=== PATIENT | female | born 1970 | race Caucasian/White ===

== ENCOUNTER 2019-06-16 13:48 | Day surgery (SDC) | payer MEDICAID ==
[2019-06-10 14:26] LABS: BASOPHILS # (AUTO) 0.1 X10'3 (0-0.2); BASOPHILS % (AUTO) 0.9 % (0-1); EOSINOPHILS # (AUTO) 0.2 X10'3 (0-0.9); EOSINOPHILS % (AUTO) 2.5 % (0-6); LYMPHOCYTES # (AUTO) 2.8 X10'3 (1.1-4.8); LYMPHOCYTES % (AUTO) 31.2 % (21-51); MEAN CORPUSCULAR HEMOGLOBIN 29.6 PG (27.0-31.0); MEAN CORPUSCULAR VOLUME 87.3 FL (78-98); MEAN PLATELET VOLUME 7.8 FL (7.4-10.4); MONOCYTES # (AUTO) 0.6 X10'3 (0-0.9); MONOCYTES % (AUTO) 6.9 % (2-12); NEUTROPHILS # (AUTO) 5.3 X10'3 (1.8-7.7); NEUTROPHILS % (AUTO) 58.5 % (42-75); PRE OP HEMATOCRIT 38.3 % (35.0-45.0); PRE OP PLATELET COUNT 317 X10'3 (140-440); RED BLOOD COUNT 4.39 X10'6 (4.20-5.60); RED CELL DISTRIBUTION WIDTH 12.8 % (11.5-14.5)
[2019-06-10 14:39] LABS: ALBUMIN 4.5 G/DL (3.4-5.0); ALKALINE PHOSPHATASE 101 IU/L (46-116); BLOOD UREA NITROGEN 23 MG/DL (7-18); BUN/CREATININE RATIO 32.4 (6.6-38.0); CALCIUM 9.6 MG/DL (8.5-10.1); CHLORIDE 101 MMOL/L (99-107); CREATININE 0.71 MG/DL (0.40-0.90); PRE OP ALT 43 U/L (30-65); PRE OP ANION GAP 7 (8-16); PRE OP AST 33 U/L (10-37); PRE OP BILIRUB, TOTAL 0.8 MG/DL (0.0-1.0); PRE OP GLUCOSE 98 MG/DL (70-104); PRE OP POTASSIUM 4.5 MMOL/L (3.4-5.1); PRE OP SODIUM 139 MMOL/L (135-145); TOTAL CARBON DIOXIDE 31.1 MMOL/L (24-32); TOTAL PROTEIN 9.2 G/DL (6.4-8.2); eGFR 88 ML/MIN
[2019-06-16] VITALS (10 sets, daily range): BP systolic 108–134; BP diastolic 58–73
[~2019-06-16] VITALS: Ht 180.3 cm; Wt 81.6 kg
[~2019-06-16 13:48] MED LIST: ASPI-1264 PO; IBUP-24 PO; cefazolin/dext.iso 2gm/100ml 100 ML IV ONE; famotidine 20mg tablet PO ONE; ringers solution, lacted 1,000 ML IV SCH; vancomycin inj 1,500 MG in normal saline 300ml IV soln IV ONE
[2019-06-16] MEDS ORDERED: BUPIVAcaine/PF 2.5 mg/ml (0.25%) 30ml vial ONE (13:54)
[2019-06-16] MEDS ORDERED: triamcinolone acetonide 40mg/ml inj ONE (13:54)
[2019-06-16] MEDS ORDERED: fentaNYL/PF 50MCG/1 ML 2ML syringe IV PRN ×2 (14:15)
[2019-06-16] MEDS ORDERED: ondansetron/PF 4mg/2ml inj IV PRN (14:15)
[2019-06-16] MEDS ORDERED: labetalol 20mg/4ml (5mg/ml) syringe IV PRN (14:15)
[2019-06-16] MEDS ORDERED: hydrALAZINE 20mg/ml inj. IV PRN (14:15)
[2019-06-16] MEDS ORDERED: morphine 4 MG/ML inj SYRINge IV PRN ×2 (14:15)
[2019-06-16] MEDS ORDERED: ringers solution, lacted 1,000 ML IV SCH (14:15)
[2019-06-16] MEDS ORDERED: fentaNYL/PF 50MCG/1 ML 2ML syringe ONE (14:54)
[2019-06-16] MEDS ORDERED: sevoflurane 250ml liquid IH ONE (14:54)
[2019-06-16] MEDS ORDERED: dexamethasone sod phosphate 10mg/ml inj ONE (14:54)
[2019-06-16] MEDS ORDERED: midazolam 2 mg/2 ml injection ONE (14:54)
[2019-06-16] MEDS ORDERED: propofol inj 20 ML IV ONE (14:56)
[2019-06-16] MEDS ORDERED: LIDOcaine 2% (20mg/ml) 5ml vial ONE (14:56)
[2019-06-16] MEDS ORDERED: ondansetron/PF 4mg/2ml inj ONE (14:57)
[2019-06-16] MEDS ORDERED: naloxone 0.4 mg/ml inj ONE (15:49)
--- NOTE | 2019-06-16 15:55 | NUR ---
Received from OR via [facility] , accompanied by Anesthesiologist MAURISIO and report given by Anesthesiolgist. PATIENT WITH 20G PIV IN RIGHT UE RUNNING LR AT 100. DENIES PAIN. LEFT KNEE BIAS WRAP IS CDI. Addendum: 06/16/19 at 1616 by Nghia Forrest RN, RN Amended: Links added.
[2019-06-16] MEDS ORDERED: acetaminophen 1,000mg/100ml IV 100 ML IV ONE (16:35)
--- NOTE | 2019-06-16 17:25 | NUR ---
ALL DC CRITERIA HAS BEEN MET. IV TAKEN OUT WITHOUT COMPLICATIONS. ALL INSTRUCTIONS COVERED AND ALL QUESTIONS ANSWERED. DRESSINGS CDI. OUT VIA WHEELCHAIR TO PERSONAL VEHICLE WHERE PATIENT WAS SECURED IN AND DRIVEN HOME BY FAMILY. PATIENT DEMONSTRATED SAFE GAIT WITH CRUTCHES. SPOUSE PRESENT TO DRESS PATIENT AND HEAR ALL DC INSTRUCTIONS. ALL QUESTIONS ANSWERED. PAIN AT A TOLERABLE LEVEL AT THIS TIME AND DRESSING TO KNEE IS CDI. Addendum: 06/16/19 at 1751 by Nghia Forrest RN, RN Amended: Links added.
== END 2019-06-16 17:25 | disposition home or self-care (01) ==
LOC: PAS 13:48 → EDSTATUS 16:45 → PAS 17:25
PROVIDERS: ATTEND Orthopaedic Surgery
DX: S83.272A Complex tear of lateral meniscus, current injury, left knee, initial encounter (principal); S83.232A Complex tear of medial meniscus, current injury, left knee, initial encounter; M94.262 Chondromalacia, left knee; G43.909 Migraine, unspecified, not intractable, without status migrainosus; M17.0 Bilateral primary osteoarthritis of knee; E66.8 Other obesity; Z68.25 Body mass index [BMI] 25.0-25.9, adult; Z79.899 Other long term (current) drug therapy; Z79.82 Long term (current) use of aspirin; Z98.890 Other specified postprocedural states; X58.XXXA Exposure to other specified factors, initial encounter; Y93.89 Activity, other specified; Y92.89 Other specified places as the place of occurrence of the external cause; Y99.8 Other external cause status
CPT/HCPCS: 29873; 29879; 29880; 36415; 80053; 82948; 85025; J0131; J1100; J2001; J2250; J2310; J2405; J2704; J3010; J3301; J3370; J3490; A4215; A4618; A6250; A6449; J7120